=== PATIENT | male | born 1985 | race Two or more races ===

== ENCOUNTER → 2024-04-15 | Outpatient (CLI) | payer OTHER | END | disposition home or self-care (01) | LOC: RAH 13:28 → EEVIPCON 13:30 | PROVIDERS: ATTEND Family Medicine | DX: I34.0 Nonrheumatic mitral (valve) insufficiency (principal); I51.7 Cardiomegaly; Z95.4 Presence of other heart-valve replacement; Z95.2 Presence of prosthetic heart valve | CPT/HCPCS: 93306 ==